=== PATIENT | female | born 2000 | race Caucasian/White ===

== ENCOUNTER 2021-06-28 00:20 | Emergency (ER) | payer OTHER, MEDICAID ==
[~2021-06-28] VITALS: Ht 172.7 cm; Wt 113.4 kg
[~2021-06-28 00:20] MED LIST: ACETAMINOPHEN-1 EAC1 PO; BIRTH CONTROL; DOXYCYCLINE 10100 MG PO; IBUPROFEN 800800 M1 PO; IBUPROFEN 800800 MG PO; MARLISSA1 EACH; MEDROLDOSEPACK PO; MOBIC7.5 M1 PO; NAPROSYN500 MG PO; NOHOMEMEDICATIONS; TRAMADOL 50 MG50 MG PO; ZPAK; ZPAK PO; [UNRECOGNIZED DRUG - REMARK]
[2021-06-28] MEDS ORDERED: NEURONTIN 300M300 M2 PO (00:29)
[2021-06-28 00:50] LABS: URINE BILIRUBIN NEGATIVE (Negative); URINE BLOOD NEGATIVE (Negative); URINE CLARITY CLEAR; URINE COLOR YELLOW; URINE GLUCOSE-RANDOM NEGATIVE (Negative); URINE KETONES NEGATIVE (Negative); URINE LEUKOCYTES-REFLEX NEGATIVE (Negative); URINE NITRITE-REFLEX NEGATIVE (Negative); URINE PROTEIN NEGATIVE (Negative); URINE SPECIFIC GRAVITY 1.025 (1.005-1.030); URINE UROBILINOGEN 0.2 E.U./dl (0.2-1.0)
[2021-06-28 01:00] LABS: AMP/METHAMP Negative (Negative); BARBITURATES Negative (Negative); BENZODIAZEPINES Negative (Negative); COCAINE Negative (Negative); METHADONE Negative (Negative); OPIATES Negative (Negative); PCP Negative (Negative); THC POSITIVE (Negative)
[2021-06-28] MEDS ORDERED: HYDROCODON-ACE1 EAC8 PO (01:48)
[2021-06-28 02:28] VITALS: BP 121/72
== END 2021-06-28 02:30 | disposition home or self-care (01) ==
LOC: M.ERS 00:20
PROVIDERS: Emergency Medicine
DX: M23.8X1 Other internal derangements of right knee (principal); J45.909 Unspecified asthma, uncomplicated; Z79.899 Other long term (current) drug therapy; Z88.2 Allergy status to sulfonamides; Z88.6 Allergy status to analgesic agent; Z88.8 Allergy status to other drugs, medicaments and biological substances